=== PATIENT | male | born 1970 | race Caucasian/White ===

== ENCOUNTER 2018-12-04 10:14 | Emergency (ER) | payer BC, OTHER ==
[~2018-12-04] VITALS: Ht 182.9 cm; Wt 78.5 kg
--- NOTE | 2018-12-04 10:50 | NUR ---
Patient discharged to home in stable conditon. Written and verbal after care instructions given. Patient verbalizes understanding of instructions.
== END 2018-12-04 10:52 | disposition home or self-care (01) ==
LOC: ER 10:14
DX: S01.512A Laceration without foreign body of oral cavity, initial encounter (principal); I25.10 Atherosclerotic heart disease of native coronary artery without angina pectoris; E78.5 Hyperlipidemia, unspecified; X58.XXXA Exposure to other specified factors, initial encounter; Y93.89 Activity, other specified; Y92.89 Other specified places as the place of occurrence of the external cause; Y99.8 Other external cause status
CPT/HCPCS: A4663

== ENCOUNTER 2019-05-03 22:06 | Emergency (ER) | payer BC, OTHER ==
[~2019-05-03] VITALS: Ht 185.4 cm; Wt 78.9 kg
--- NOTE | 2019-05-03 22:25 | NUR ---
Dr. Tucker at bedside for MSE.
[2019-05-03] MEDS ORDERED: ONDANSETRON 4 MG/2 ML VIAL IV ONE (22:30)
[2019-05-03] MEDS ORDERED: KETOROLAC TROMETHAMINE 15 MG INJ IV ONE (22:30)
[2019-05-03] MEDS ORDERED: IV NORMAL SALINE 1000 ML BAG IV ONE (22:30)
[2019-05-03] MEDS ORDERED: HYDROMORPHONE 1 MG/1 ML DISP.SYRIN IV ONE (22:30)
[2019-05-03] MEDS ORDERED: ONDANSETRON 4 MG/2 ML VIAL ONE (22:34)
[2019-05-03] MEDS ORDERED: HYDROMORPHONE 2 MG/1 ML DISP.SYRIN ONE (22:34)
[2019-05-03] MEDS ORDERED: KETOROLAC TROMETHAMINE 30 MG INJ ONE (22:34)
--- NOTE | 2019-05-03 22:42 | NUR ---
Pt out of ER for CT.
--- NOTE | 2019-05-03 22:53 | NUR ---
Pt back to ER from CT.
--- NOTE | 2019-05-03 23:17 | NUR ---
Pt unable to provide urine at this time.
--- NOTE | 2019-05-03 23:33 | NUR ---
Patient discharged to home in stable conditon. Written and verbal after care instructions given. Patient verbalizes understanding of instructions. Pt ambulated out of ER with steady gait, no acute signs of distress, VSS, all belongings taken, IV site discontinued, to be driven home by via private vehicle.
[2019-05-03 23:35] VITALS: BP 110/64
== END 2019-05-03 23:36 | disposition home or self-care (01) ==
LOC: ER 22:09
DX: N20.0 Calculus of kidney (principal); I25.10 Atherosclerotic heart disease of native coronary artery without angina pectoris; E78.5 Hyperlipidemia, unspecified; F17.200 Nicotine dependence, unspecified, uncomplicated; F12.10 Cannabis abuse, uncomplicated
CPT/HCPCS: 74176; 96374; 96375; 99284; J1170; J1885; J2405; A4663; J7030